=== PATIENT | female | born 1950 | race Caucasian/White ===

== ENCOUNTER 2016-10-12 10:43 | Day surgery (SDC) | payer BC, MEDICARE ==
[2016-10-11 10:54] VITALS: BMI 29.2
[~2016-10-12 10:43] MED LIST: LACTATED RINGERS 1,000 ML IV SCH; LIDOCAINE 1% 20 ML VIAL (10MG/ML) FOR IV START INTRADERMA PRN
[2016-10-12] MEDS: CYCLOPENTOLATE 1% OPHTH SOLN 2 ML BTL OP ONE ×3 (11:05→11:26)
[2016-10-12] MEDS: FLURBIPROFEN 0.03% OPHTH DROPS 2.5 ML BTL OP ONE ×3 (11:10→11:29)
[2016-10-12] MEDS: PHENYLEPHRINE 10% OPHTH DROPS 5 ML BTL OP ONE ×3 (11:13→11:31)
[2016-10-12 11:30] VITALS: RESP 16; TEMP 97.7
[2016-10-12] MEDS ORDERED: HYALURONATE SODIUM INTRAOCULAR 1 EACH SYRINGE (10MG/ML) INTRAOCULA ONE (11:43)
[2016-10-12] MEDS ORDERED: TIMOLOL 0.5% OPHTH SOLN (PF) 0.2 ML DROPERETTE LEFT EYE ONE (11:43)
[2016-10-12] MEDS ORDERED: BALANCED SALT IRRIG SOLN COMB2 15 ML IRRIG.SOLN INTRAOCULA ONE (11:43)
[2016-10-12] MEDS ORDERED: LIDOCAINE 1% INJ 10MG/ML (20 ML MDV) ONE (11:45)
[2016-10-12] MEDS ORDERED: PROPOFOL 10 MG/ML 20 ML VIAL IV ONE (11:45)
[2016-10-12] MEDS ORDERED: EPINEPHrine (PF) 0.5 ML in BALANCED SALT IRRIG SOLN COMB2 500 ML IRRIGATION ONE (11:49)
--- NOTE | 2016-10-12 12:05 | P.OP ---
Date of Procedure: 10/12/16 Preoperative Diagnosis: Postoperative Diagnosis: Procedure(s) Performed: PREOPERATIVE DIAGNOSIS: Cataract, left eye. POSTOPERATIVE DIAGNOSIS: Cataract, left eye. OPERATION: Phacoemulsification cataract, left eye. DESCRIPTION OF PROCEDURE: The patient was taken to the preoperative holding area. Intravenous Propofol was given so as to bring about adequate sedation. The following mixture was given for local anesthesia: 5 mL of 2% lidocaine, 5 mL of 0.75% Marcaine, and 1 mL of Wydase. Approximately 4 mL was injected in the retrobulbar space of the surgical eye. Additional 1 mL was then directed to the temporal area of the surgical eye. This was performed to allow adequate neurological block of the facial muscles. The patient was revived and then taken into the operative room. The patient was prepped and draped in the usual sterile manner for the operative eye. A lid speculum was put into position. The conjunctiva was resected back from the limbus in the 12 o'clock position. Bleeding was controlled with electrocautery. A #69 blade was then used and a half-thickness scleral incision approximately 1-mm posterior to the limbus was made on bare sclera. This was shelved in the clear cornea using a crescent knife. Next a 15-degree blade was used to make a stab incision at the 3 o' clock position at the corneolimbal interface. Keratome blade was then used and the superior wound was extended into the anterior chamber. Viscoelastic was injected into the anterior chamber and to maintain its form. Next, a cystotome was used and a continuous anterior capsulotomy was made without difficulty. Hydrodissection using a blunt cannula and BSS was performed. Phaco probe was then employed and a groove extending from 12 to 6 o'clock in the lens was created. A Jean Carlos wand was used through the stab incision so as to perform a divide and conquer technique. Next an irrigation aspiration probe was utilized and any residual cortex was removed from the eye. Again, viscoelastic was injected into the anterior chamber. An Jose posterior chamber lens implant was placed in the cartridge and injected into the anterior chamber without difficulty. The [employer] hook was utilized to spin the lens into position and this was again performed without any difficulty. The irrigation and aspiration probe was again employed and any residual viscoelastic was removed from the eye. Then BSS was injected into the limbal stab incision and the anterior chamber re-inflated. The conjunctiva was reapproximated using electrocautery. One drop of 0.25% Timoptic was placed over the corneal along with TobraDex ophthalmic ointment. Two sterile patches and a Ag eye shield were taped into position. The patient was transported to the recovery room in stable condition. Implants: Pathology: none sent Condition: stable Disposition: same day Indications for Procedure: Operative Findings: Description of Procedure:
[2016-10-12 12:25] VITALS: BP 144/74; PULSE 62
[2016-10-12] MEDS ORDERED: GENTAMICIN/PREDNISOL AC OPHTH OINT 3.5GM OPHTHALMIC ONE (23:00)
[2016-10-12] MEDS ORDERED: TIMOLOL 0.5% OPHTH SOLN (PF) 0.2 ML DROPERETTE OP ONE (23:00)
[2016-10-12] MEDS ORDERED: BUPIVACAINE (PF) 0.75% 5 ML, LIDOCAINE 4% (PF) 5 ML, HYALURONIDASE, HUMAN RECOMB 150 UNIT MISCELLANE ONE ×3 (23:00)
== END 2016-10-12 12:43 | disposition home or self-care (01) ==
LOC: OR 10:43
PROVIDERS: ATTEND Ophthalmology
DX: H26.9 Unspecified cataract (principal); F32.9 Major depressive disorder, single episode, unspecified; Z79.899 Other long term (current) drug therapy
CPT/HCPCS: 66984; V2632; J2001 ×2; J3470; J0171; J2704

== ENCOUNTER → 2018-01-24 | Outpatient (CLI) | payer MEDICARE ==
--- NOTE | 2018-01-24 14:47 | BD ---
EXAMINATION TYPE: Axial Bone Density DATE OF EXAM: 01/24/2018 COMPARISON: NONE CLINICAL HISTORY: 67 YR OLD FEMALE.....ICD-10 CODE: M89.9 DISORDER OF BONE Height: 62 Weight: 176 FRAX RISK QUESTIONS: History of Fracture in Adulthood: YES RISK FACTORS HISTORY OF: RT ELBOW FX AT 66 YRS OLD History of Wrist Fracture: RT WRIST...AT 56 YRS OLD Family History of Osteoporosis: MATERNAL AUNT Diet low in dairy products/other sources of calcium: NO Postmenopausal woman: YES AT 51 YRS OLD MEDICATIONS: Additional Medications: CYMBALTA, Additional History: NOTHING TO NOTE EXAM MEASUREMENTS: Bone mineral densitometry was performed using the [facility]. Bone mineral density as measured about the Lumbar spine is: ----- L1-L4(G/cm2): 1.491 T Score Values are as follows: ----- L1: 1.0 ----- L2: 2.3 ----- L3: 3.2 ----- L4: 3.2 ----- L1-L4: 2.6 Bone mineral density FIRST BONE DENSITY TEST.....BASELINE STUDY Bone mineral density about the R hip (g/cm2): 1.078 Bone mineral density about the L hip (g/cm2): 1.114 T Score values are as follows: -----R Neck: -0.4 -----L Neck: 0.1 -----R Total: 0.6 -----L Total: 0.8 Bone mineral density BASELINE STUDY FRAX%s: THERE IS A 11.5% CHANCE FOR A MAJOR OSTEOPOROTIC FX AND A 0.5% FOR HIP FX.....PROBABILITY OF FX IN 10 YRS TIME IMPRESSION: Normal (Values between +1 and -1 indicate normal bone mass). Consider repeating this study in 5 year s or sooner if there is some new clinical indication. NOTE: T-SCORE=SD OF THE YOUNG ADULT MEAN.
--- NOTE | 2018-01-25 08:53 | MM ---
Reason for exam: screening (asymptomatic). Last mammogram was performed 2 years ago. History: Patient is postmenopausal. Family history of breast cancer in mother at age 44. Benign excisional biopsy of the left breast, 2007. Physical Findings: A clinical breast exam by your physician is recommended on an annual basis and results should be correlated with mammographic findings. MG Screening Mammo w CAD Bilateral CC and MLO view(s) were taken. Prior study comparison: January 27, 2016, mammogram, performed at [facility]. There are scattered fibroglandular densities. There is no discrete abnormality. No significant changes when compared with prior studies. ASSESSMENT: Negative, BI-RAD 1 RECOMMENDATION: Routine screening mammogram of both breasts in 1 year.
== END | disposition home or self-care (01) ==
LOC: RADMAMWWP 09:34
PROVIDERS: ATTEND Internal Medicine
DX: Z12.31 Encounter for screening mammogram for malignant neoplasm of breast (principal); M89.9 Disorder of bone, unspecified
CPT/HCPCS: 77067; 77080

== ENCOUNTER 2018-10-02 11:44 | Emergency (ER) | payer MEDICARE ==
[2018-10-02 11:57] VITALS: TEMP 97.4
[2018-10-02] MEDS ORDERED: SODIUM CHLORIDE 0.9% 1,000 ML IV STA ×2 (13:07)
--- NOTE | 2018-10-02 13:25 | ED ---
General Adult HPI - General Chief complaint: Neuro Symptoms/Deficit Stated complaint: headache x 7 days, facial numbness, visual disturb Time Seen by Provider: 10/02/18 12:36 Source: patient, family, RN notes reviewed, old records reviewed, Caregiver Mode of arrival: ambulatory Limitations: no limitations - History of Present Illness Initial comments: Patient is a 68-year-old female presents today with complaints of right-sided headache, complains of the headache lasting for one week. She states today she developed some left-sided tingling over her upper lip. She denies any facial paralysis. Denies any peripheral paresthesias. He denies any significant past medical history. She is a non smoker. She does not have a history of heart disease or stroke. - Related Data Home Medications Medication Instructions Recorded Confirmed Acetaminophen Tab [Tylenol Tab] 1,000 mg PO Q6HR PRN 10/02/18 10/02/18 DULoxetine HCL [Cymbalta] 30 mg PO HS 10/02/18 10/02/18 Ibuprofen [Motrin Ib] 400 mg PO Q6H PRN 10/02/18 10/02/18 Pramipexole [Mirapex] 0.5 mg PO HS 10/02/18 10/02/18 traZODone HCL [Desyrel] 50 mg PO HS 10/02/18 10/02/18 Allergies Allergy/AdvReac Type Severity Reaction Status Date / Time No Known Allergies Allergy Verified 10/02/18 12:42 Review of Systems ROS Statement: Those systems with pertinent positive or pertinent negative responses have been documented in the HPI. ROS Other: All systems not noted in ROS Statement are negative. Past Medical History Past Medical History: Eye Disorder Additional Past Medical History / Comment(s): LEFT EYE CATARACT, restless leg History of Any Multi-Drug Resistant Organisms: None Reported Past Surgical History: Section, Cholecystectomy Additional Past Surgical History / Comment(s): RT EYE CATARACT SX Past Anesthesia/Blood Transfusion Reactions: No Reported Reaction Past Psychological History: Depression Smoking Status: Former smoker Past Alcohol Use History: Occasional Past Drug Use History: None Reported - Past Family History Mother Family Medical History: Cancer General Exam - General Exam Comments Initial Comments: Well appearing 68 year old female, no distress. Limitations: no limitations General appearance: alert, in no apparent distress Head exam: Present: atraumatic, normocephalic, normal inspection Eye exam: Present: normal appearance, PERRL, EOMI. Absent: scleral icterus, conjunctival injection, periorbital swelling ENT exam: Present: normal exam, mucous membranes moist, other (Patient states left upper lip tingling, but normal sensation to light touch. Patient has no facial paralysis. ) Neck exam: Present: normal inspection. Absent: tenderness, meningismus, lymphadenopathy Respiratory exam: Present: normal lung sounds bilaterally. Absent: respiratory distress, wheezes, rales, rhonchi, stridor Cardiovascular Exam: Present: regular rate, normal rhythm, normal heart sounds. Absent: systolic murmur, diastolic murmur, rubs, gallop, clicks GI/Abdominal exam: Present: soft, normal bowel sounds. Absent: distended, tenderness, guarding, rebound, rigid Extremities exam: Present: normal inspection, full ROM, normal capillary refill. Absent: tenderness, pedal edema, joint swelling, calf tenderness Back exam: Present: normal inspection Neurological exam: Present: alert, oriented X3, CN II-XII intact Psychiatric exam: Present: normal affect, normal mood Course Vital Signs 10/02/18 10/02/18 10/02/18 11:54 13:30 14:00 Temperature 97.4 F L Pulse Rate 69 65 65 Respiratory 16 21 20 Rate Blood Pressure 150/74 165/78 159/74 O2 Sat by Pulse 97 96 98 Oximetry 10/02/18 10/02/18 14:30 15:30 Temperature Pulse Rate 62 70 Respiratory 16 19 Rate Blood Pressure 142/99 146/72 O2 Sat by Pulse 97 98 Oximetry Medical Decision Making - Medical Decision Making Patient is a 68 year old female presents with one week right sided headache, and today complains of tingling in left upper lip. She hasNIH of 0, she reports sensation of light touch over face. No paralysis or other neurodeficits. Patient CT shows chronic white matter changes. Normal CXR, ekg and labs. She was reevaluated and stated headache is diminished and has normal sensation over lip again. Discussed possible transfer to neuro facility, however patient stated she felt well and wanted to follow up with PCP. Discussed return parameters. - Lab Data Result diagrams: 10/02/18 13:25 10/02/18 13:25 Lab Results 10/02/18 10/02/18 10/02/18 Range/Units 13:25 13:25 13:25 WBC 8.2 (3.8-10.6) k/uL RBC 4.77 (3.80-5.40) m/uL Hgb 14.7 (11.4-16.0) gm/dL Hct 44.3 (34.0-46.0) % MCV 92.9 (80.0-100.0) fL MCH 30.8 (25.0-35.0) pg MCHC 33.2 (31.0-37.0) g/dL RDW 14.4 (11.5-15.5) % Plt Count 226 (150-450) k/uL Neutrophils % 69 % Lymphocytes % 21 % Monocytes % 5 % Eosinophils % 3 % Basophils % 0 % Neutrophils # 5.7 (1.3-7.7) k/uL Lymphocytes # 1.7 (1.0-4.8) k/uL Monocytes # 0.4 (0-1.0) k/uL Eosinophils # 0.2 (0-0.7) k/uL Basophils # 0.0 (0-0.2) k/uL PT 9.8 (9.0-12.0) sec INR 0.9 (<1.2) APTT 22.8 (22.0-30.0) sec Sodium 139 (137-145) mmol/L Potassium 4.2 (3.5-5.1) mmol/L Chloride 108 H (98-107) mmol/L Carbon Dioxide 25 (22-30) mmol/L Anion Gap 6 mmol/L BUN 22 H (7-17) mg/dL Creatinine 0.98 (0.52-1.04) mg/dL Est GFR (CKD-EPI)AfAm 69 (>60 ml/min/1.73 sqM) Est GFR (CKD-EPI)NonAf 60 (>60 ml/min/1.73 sqM) Glucose 101 H (74-99) mg/dL Calcium 9.4 (8.4-10.2) mg/dL Total Bilirubin 0.4 (0.2-1.3) mg/dL AST 28 (14-36) U/L ALT 33 (9-52) U/L Alkaline Phosphatase 58 (38-126) U/L Troponin I (0.000-0.034) ng/mL Total Protein 6.5 (6.3-8.2) g/dL Albumin 3.8 (3.5-5.0) g/dL 10/02/18 Range/Units 13:25 WBC (3.8-10.6) k/uL RBC (3.80-5.40) m/uL Hgb (11.4-16.0) gm/dL Hct (34.0-46.0) % MCV (80.0-100.0) fL MCH (25.0-35.0) pg MCHC (31.0-37.0) g/dL RDW (11.5-15.5) % Plt Count (150-450) k/uL Neutrophils % % Lymphocytes % % Monocytes % % Eosinophils % % Basophils % % Neutrophils # (1.3-7.7) k/uL Lymphocytes # (1.0-4.8) k/uL Monocytes # (0-1.0) k/uL Eosinophils # (0-0.7) k/uL Basophils # (0-0.2) k/uL PT (9.0-12.0) sec INR (<1.2) APTT (22.0-30.0) sec Sodium (137-145) mmol/L Potassium (3.5-5.1) mmol/L Chloride (98-107) mmol/L Carbon Dioxide (22-30) mmol/L Anion Gap mmol/L BUN (7-17) mg/dL Creatinine (0.52-1.04) mg/dL Est GFR (CKD-EPI)AfAm (>60 ml/min/1.73 sqM) Est GFR (CKD-EPI)NonAf (>60 ml/min/1.73 sqM) Glucose (74-99) mg/dL Calcium (8.4-10.2) mg/dL Total Bilirubin (0.2-1.3) mg/dL AST (14-36) U/L ALT (9-52) U/L Alkaline Phosphatase (38-126) U/L Troponin I <0.012 (0.000-0.034) ng/mL Total Protein (6.3-8.2) g/dL Albumin (3.5-5.0) g/dL 10/02/18 14:03 EKG performed at 1329 shows a sinus rhythm abnormal EKG. Ventricular rate of 66 bpm. VT interval is 166 ms. QRS duration 86 ms. QTC is 420/440 ms. No distress elevation or T-wave inversions. - Radiology Data Radiology results: report reviewed Non specific white matter changes. If there is concern for acute ischemia correlate with mri. Normal CXR. Disposition Clinical Impression: Headache around the eyes, Facial paresthesia Disposition: HOME SELF-CARE Condition: Good Instructions (If sedation given, give patient instructions): Kinsey Palsy (ED), Acute Headache (ED) Additional Instructions: Patient is to follow-up with her primary care physician. Return to the emergency department if any alarming signs or symptoms occur. Is patient prescribed a controlled substance at d/c from ED?: No Referrals: Arnaldo Fraser MD [Primary Care Provider] - 1-2 days Time of Disposition: 15:41
[2018-10-02 13:44] LABS: Basophils % (A) 0 %; Eosinophils # (A) 0.2 k/uL (0-0.7); Eosinophils % (A) 3 %; HCT 44.3 % (34.0-46.0); HGB 14.7 gm/dL (11.4-16.0); Lymphocytes # (A) 1.7 k/uL (1.0-4.8); Lymphocytes % (A) 21 %; MCH 30.8 pg (25.0-35.0); MCHC 33.2 g/dL (31.0-37.0); MCV 92.9 fL (80.0-100.0); Monocytes # (A) 0.4 k/uL (0-1.0); Monocytes % (A) 5 %; Neutrophils # (A) 5.7 k/uL (1.3-7.7); Neutrophils % (A) 69 %; Platelet Count 226 k/uL (150-450); RBC 4.77 m/uL (3.80-5.40); RDW 14.4 % (11.5-15.5); WBC 8.2 k/uL (3.8-10.6)
[2018-10-02 13:55] LABS: Albumin 3.8 g/dL (3.5-5.0); Calcium 9.4 mg/dL (8.4-10.2); INR 0.9 (<1.2); Partial Thromboplastin Time 22.8 sec (22.0-30.0); Potassium 4.2 mmol/L (3.5-5.1); Prothrombin Time 9.8 sec (9.0-12.0); Total Bilirubin 0.4 mg/dL (0.2-1.3); Total Protein 6.5 g/dL (6.3-8.2)
--- NOTE | 2018-10-02 13:56 | CT ---
EXAMINATION TYPE: CT brain wo con DATE OF EXAM: 10/02/2018 COMPARISON: None HISTORY: Headache and facial tingling CT DLP: 1080.4 mGycm Automated exposure control for dose reduction was used. FINDINGS: Ventricular system midline. There is a small calcification along the anterior interhemispheric fissur e. No acute hemorrhage or mass effect. Ventricular system compatible with the patient's age. Faint lo w-attenuation the white matter is nonspecific. Partially empty sella turcica noted. Craniocervical ju nction maintained. Low-attenuation within the left basal ganglia may be secondary to prominent Vircho w-Christiano space or tiny remote lacunar infarct. IMPRESSION: NONSPECIFIC WHITE MATTER CHANGES. IF THERE IS CONCERN FOR ACUTE ISCHEMIA CORRELATE WITH MRI CLINIC ALLY WARRANTED.
--- NOTE | 2018-10-02 13:57 | XR ---
EXAMINATION TYPE: XR chest 2V DATE OF EXAM: 10/02/2018 COMPARISON: 04/16/2014 TECHNIQUE: PA and lateral views submitted. HISTORY: Headache FINDINGS: The lungs are clear and there is no pneumothorax, pleural effusion, or focal pneumonia. Hypertrophi c and degenerative change of the spine. Surgical clips in the right upper quadrant. Arthropathy of th e shoulders. IMPRESSION: 1. No acute process.
[2018-10-02 15:32] VITALS: BP 146/72; PULSE 70; RESP 19
== END 2018-10-02 15:45 | disposition home or self-care (01) ==
LOC: EC 11:44
DX: R51 Headache (principal); R20.2 Paresthesia of skin; R20.0 Anesthesia of skin; H53.8 Other visual disturbances; G25.81 Restless legs syndrome; F32.9 Major depressive disorder, single episode, unspecified; Z86.69 Personal history of other diseases of the nervous system and sense organs; Z98.49 Cataract extraction status, unspecified eye; Z87.891 Personal history of nicotine dependence; Z79.899 Other long term (current) drug therapy
CPT/HCPCS: 36415; 70450; 71046; 80053; 84484; 85025; 85610; 85730; 93005; 96360; 96361; 99285

== ENCOUNTER → 2018-10-18 | Outpatient (CLI) | payer MEDICARE ==
--- NOTE | 2018-10-18 15:51 | US ---
EXAMINATION TYPE: US carotid duplex BILAT DATE OF EXAM: 10/18/2018 COMPARISON: NONE CLINICAL HISTORY: G45.9 Transient cerebral ischemic attack. EXAM MEASUREMENTS: RIGHT: Peak Systolic Velocity (PSV) cm/sec ----- Right CCA: 104.4 ----- Right ICA: 123.8 ----- Right ECA: 143.1 ICA/CCA ratio: 1.2 RIGHT: End Diastole cm/sec ----- Right CCA: 25.2 ----- Right ICA: 36.5 ----- Right ECA: 22.9 LEFT: Peak Systolic Velocity (PSV) cm/sec ----- Left CCA: 123.4 ----- Left ICA: 117.5 ----- Left ECA: 107.7 ICA/CCA ratio: 1.0 LEFT: End Diastole cm/sec ----- Left CCA: 34.7 ----- Left ICA: 46.5 ----- Left ECA: 17.0 VERTEBRALS (direction of flow): Right Vertebral: Antegrade Left Vertebral: Antegrade Rhythm: Normal Moderate amount of plaque in the right bulbs. Elevated velocities seen in right ECA and left proximal and mid CCA IMPRESSION: 1. Moderate amount of plaque with no significant hemodynamic stenosis bilaterally. Criteria for Assigning % of Stenosis / Diameter reduction (Estimation based on the indirect measurements of the internal carotid artery velocities (ICA PSV). 1. Normal (no stenosis)=ICA PSV < 125 cm/s: ratio < 2.0: ICA EDV<40 cm/s. 2. Less than 50% stenosis=ICA PSV < 125 cm/s: ratio < 2.0: ICA EDV<40 cm/s. 3. 50 to 69% stenosis=ICA PSV of 125 to 230 cm/s: ration 2.0 ? 4.0: ICA EDV 40-100 cm/s. 4. Greater than 70% stenosis to near occlusion= ICA PSV > 230 cm/s: ratio > 4.0: ICA EDV > 100 cm/s. 5. Near occlusion= ICA PSV velocities may be low or undetectable: variable ratio and ICA EDV. 6. Total occlusion=unable to detect flow.
== END | disposition home or self-care (01) ==
LOC: RADUSWWP 15:11
PROVIDERS: ATTEND Internal Medicine
DX: I65.23 Occlusion and stenosis of bilateral carotid arteries (principal); G45.9 Transient cerebral ischemic attack, unspecified
CPT/HCPCS: 93880

== ENCOUNTER 2020-02-15 16:48 | Emergency (ER) | payer MEDICARE ==
[2020-02-15 16:57] VITALS: RESP 18; TEMP 97.6
[2020-02-15] MEDS ORDERED: MORPHINE SULFATE 2 MG/ML SYRINGE IM STA (17:12)
[2020-02-15] MEDS ORDERED: MORPHINE SULFATE 4 MG/ML SYRINGE IM STA (17:24)
--- NOTE | 2020-02-15 18:09 | CT ---
EXAMINATION TYPE: CT pelvis wo con DATE OF EXAM: 02/15/2020 COMPARISON: 04/17/2014 HISTORY: Pain. Fall. CT DLP: 474.3 mGycm Automated exposure control for dose reduction was used. Images were obtained from the iliac crests to the subtrochanteric femurs without contrast. FINDINGS: The pelvic ring is intact. Sacroiliac joints appear intact. Sacrum and coccyx show normal alignment o f the segments. There is narrowing of L5-S1 disc space with spurring of the endplates. There is no co mpression fracture at L5. There is some acetabular spurring. The proximal femurs are intact. I see no evidence of femoral fracture. There is some spurring at the greater trochanter of both femurs. Bladder distends smoothly. There is no free fluid in the pelvis. There is no evidence of a pelvic mas s. There is sigmoid diverticulosis without evidence of diverticulitis. IMPRESSION: Minor degenerative changes in the hip joints and in the lower lumbar spine. No fracture seen.
--- NOTE | 2020-02-15 18:12 | CT ---
EXAMINATION TYPE: CT lumbar spine wo con DATE OF EXAM: 02/15/2020 COMPARISON: 04/17/2014 HISTORY: Left sided hip and back pain post fall CT DLP: 1147.4 mGycm Automated exposure control for dose reduction was used. Images were obtained from the level of T12-S2 vertebra with no contrast. Lumbar vertebra have normal alignment. There is mild narrowing at L5-S1 disc. There is hypertrophic a nterior spurring throughout the lumbar spine. There is no compression deformity. There is multilevel hypertrophic lumbar facet arthropathy. This is more severe at L4-5 and L5-S1. There is no lumbar para spinal mass. There is ligamentum flavum thickening and small disc bulge at L4-5 there is resultant mi ld to moderate L4-5 spinal stenosis. Sacroiliac joints are intact. IMPRESSION: Multilevel spondylotic changes with spur formation. Mild spinal stenosis at L4-5. No fracture seen.
[2020-02-15 18:38] VITALS: PULSE 67
[2020-02-15] MEDS ORDERED: KETOROLAC 15 MG/ML 1 ML VIAL IM STA (18:54)
--- NOTE | 2020-02-15 19:37 | XR ---
EXAMINATION TYPE: XR ribs LT w pa chest xray DATE OF EXAM: 02/15/2020 COMPARISON: 04/16/2014 HISTORY: Fall. Chest pain. TECHNIQUE: 5 views FINDINGS: There is no heart failure nor confluent pneumonic infiltrate. Costophrenic angles are clear . There is no pleural effusion or pneumothorax. The left ribs appear intact. There are clips from teja cystectomy. IMPRESSION: No evidence of rib fracture. No active cardiopulmonary disease. No change.
[2020-02-15] MEDS ORDERED: ACET/COD 300 MG/30 MG STARTER PACK 6 TAB BTL PO STA (20:09)
[2020-02-15] MEDS ORDERED: LIDOCAINE 5% PATCH TOPICAL STA (20:09)
--- NOTE | 2020-02-15 20:14 | ED ---
Fall HPI - General Chief Complaint: Fall Stated Complaint: fall Time Seen by Provider: 02/15/20 16:53 Source: patient, EMS Mode of arrival: EMS - History of Present Illness Initial Comments: Patient is a 69-year-old female with no past medical history presents emergency Department after she sustained a fall. Patient states that she was walking down the stairs with her hands full when she slipped down the last step and fell onto her left flank area. Patient states she sat there for approximately 30 minutes and couldn't move. She denies any pain that was radiating into her leg. Denies any midline back pain. No head trauma or loss of consciousness. She does admit to sipping alcohol today and smoked marijuana. She was unable to stand up and therefore EMS was called. She did not receive any pain medications. Denies nausea or vomiting. No neck or thoracic back pain. No numbness, taming or weakness in her lower extremity. No bowel or bladder incontinence. No saddle anesthesia. No other alleviating, precipitating or modifying factors - Related Data Home Medications Medication Instructions Recorded Confirmed DULoxetine HCL [Cymbalta] 30 mg PO HS 10/02/18 02/15/20 traZODone HCL [Desyrel] 50 mg PO HS 10/02/18 02/15/20 Pramipexole [Mirapex] 1 mg PO HS 02/15/20 02/15/20 amLODIPine [Norvasc] 2.5 mg PO HS 02/15/20 02/15/20 Previous Rx's Medication Instructions Recorded Acetaminophen-Codeine 300-30mg 1 tab PO Q4H PRN #20 tablet 02/15/20 [Tylenol #3] Lidocaine 5% Patch [Lidoderm 5% 1 patch TOPICAL DAILY #20 patch 02/15/20 Patch] Allergies Allergy/AdvReac Type Severity Reaction Status Date / Time No Known Allergies Allergy Verified 02/15/20 18:58 Review of Systems ROS Statement: Those systems with pertinent positive or pertinent negative responses have been documented in the HPI. ROS Other: All systems not noted in ROS Statement are negative. Past Medical History Past Medical History: Eye Disorder Additional Past Medical History / Comment(s): LEFT EYE CATARACT, restless leg History of Any Multi-Drug Resistant Organisms: None Reported Past Surgical History: Section, Cholecystectomy Additional Past Surgical History / Comment(s): LEFT and RT EYE CATARACT SX Past Anesthesia/Blood Transfusion Reactions: No Reported Reaction Past Psychological History: Depression Smoking Status: Never smoker Past Alcohol Use History: Occasional Past Drug Use History: Marijuana - Past Family History Mother Family Medical History: Cancer General Exam Limitations: physical limitation General appearance: alert, in no apparent distress Head exam: Present: atraumatic, normocephalic, normal inspection Eye exam: Present: normal appearance, PERRL, EOMI. Absent: scleral icterus, conjunctival injection, periorbital swelling ENT exam: Present: normal exam, mucous membranes moist Neck exam: Present: normal inspection. Absent: tenderness, meningismus, lymphadenopathy Respiratory exam: Present: normal lung sounds bilaterally. Absent: respiratory distress, wheezes, rales, rhonchi, stridor Cardiovascular Exam: Present: regular rate, normal rhythm, normal heart sounds. Absent: systolic murmur, diastolic murmur, rubs, gallop, clicks GI/Abdominal exam: Present: soft, normal bowel sounds. Absent: distended, tenderness, guarding, rebound, rigid Extremities exam: Present: normal inspection, full ROM, normal capillary refill. Absent: tenderness, pedal edema, joint swelling, calf tenderness Back exam: Present: normal inspection, CVA tenderness (L) Neurological exam: Present: alert, oriented X3, CN II-XII intact Psychiatric exam: Present: normal affect, normal mood Skin exam: Present: warm, dry, intact, other (ecchymosis over left flank ). Absent: rash Course Vital Signs 02/15/20 02/15/20 02/15/20 16:53 18:35 20:16 Temperature 97.6 F 97.6 F Pulse Rate 57 L 67 67 Respiratory 18 18 18 Rate Blood Pressure 165/100 188/93 171/82 O2 Sat by Pulse 98 97 97 Oximetry Medical Decision Making - Medical Decision Making Upon arrival patient was placed into room 12. A thorough history and physical exam was performed. Patient is reporting to pain in her left iliac crest. She is given 4 mg of morphine and sent over for CT of her lumbar spine as well as her pelvis. Imaging is reviewed and negative for any acute fractures. Patient is reevaluated. Reports her pain is now complaining of the pain is higher up on her back and is over her lower ribs. Because of this the patient was sent back for a chest x-ray with a left-sided rib study. Patient is given 30 mg of Toradol IM. X-rays reviewed and demonstrates no evidence of rib fracture. The patient is able to get up and ambulate. I did discuss diagnosis, differential and treatment options. Patient does have a bedside ultrasound performed by myself which demonstrates no blood in the spleenorenal fossa. At this time the patient does request to go home. She will be given a prescription for Tylenol 3 for pain control and Lidoderm patches. Lidoderm patch was administered prior to her leaving. The patient developed a primary care doctor within 2-4 days. Return to the emergency room for any new or worsening symptoms. Patient was and discharged home in stable condition Disposition Clinical Impression: Fall, Rib contusion, Flank pain Disposition: HOME SELF-CARE Condition: Stable Instructions (If sedation given, give patient instructions): Flank Pain (ED) Additional Instructions: Please follow up with your primary care doctor in regards to your pain. Return to the emergency room for any new or worsening symptoms including fever, productive cough or abdominal pain. Prescriptions: Lidocaine 5% Patch [Lidoderm 5% Patch] 1 patch TOPICAL DAILY #20 patch Acetaminophen-Codeine 300-30mg [Tylenol #3] 1 tab PO Q4H PRN #20 tablet PRN Reason: pain Is patient prescribed a controlled substance at d/c from ED?: Yes When asked, does pt state using other controlled substances?: No If prescribed controlled substance>3 days was MAPS reviewed?: Prescribed <3 Days If opioid is for acute pain is fill amount 7 days or less?: Yes If Rx opioid, was Start Talking consent form obtained?: Yes Referrals: Maria Dolores Mcmahon NPC [Primary Care Provider] - 1-2 days Time of Disposition: 20:14
[2020-02-15 20:17] VITALS: BP 171/82
== END 2020-02-15 20:19 | disposition home or self-care (01) ==
LOC: EC 16:48
DX: S20.219A Contusion of unspecified front wall of thorax, initial encounter (principal); R10.9 Unspecified abdominal pain; F32.9 Major depressive disorder, single episode, unspecified; G25.81 Restless legs syndrome; Z79.899 Other long term (current) drug therapy; Z90.49 Acquired absence of other specified parts of digestive tract; W01.0XXA Fall on same level from slipping, tripping and stumbling without subsequent striking against object, initial encounter; Y93.01 Activity, walking, marching and hiking
CPT/HCPCS: 82075; 71101; 72192; 72131; 96372 ×2; 99284; J2270; J1885

== ENCOUNTER → 2021-04-03 | Outpatient (CLI) | payer MEDICARE ==
--- NOTE | 2021-04-04 06:06 | MR ---
EXAMINATION TYPE: MR knee LT wo con DATE OF EXAM: 04/03/2021 COMPARISON: None HISTORY: Left knee pain, injured stepping off a ladder. Multiplanar multiecho imaging of the right knee without contrast. There is a large knee joint effusion. The anterior and posterior cruciate ligaments are intact. There is thinning of the anterior horn of the lateral meniscus. The medial meniscus appears fairly normal. The patella is intact. There is subcutaneous edema anterior to the knee. There is hypertrophic spurr ing of the femoral and tibial condyles. The collateral ligaments appear intact. There is no evidence of a fracture. IMPRESSION: Large knee joint effusion. Hypertrophic osteoarthritis. Extensive tear of the anterior horn of the la teral meniscus. There is intrasubstance tear of the posterior horn of the lateral meniscus. No eviden ce of ligamentous tear.
== END | disposition home or self-care (01) ==
LOC: RADMRIMAIN 15:30
PROVIDERS: ATTEND Physician Assistant
DX: S83.282A Other tear of lateral meniscus, current injury, left knee, initial encounter (principal); M17.12 Unilateral primary osteoarthritis, left knee; W11.XXXA Fall on and from ladder, initial encounter

== ENCOUNTER 2021-09-05 11:05 | Emergency (ER) | payer MEDICARE ==
[2021-09-05 11:56] LABS: ALT 20 U/L (4-34); AST 25 U/L (14-36); African American GFR (CKD) >90 (>60 ml/min/1.73 sqM); Albumin 3.7 g/dL (3.5-5.0); Alkaline Phosphatase 60 U/L (38-126); Anion Gap 2 mmol/L; Blood Urea Nitrogen 24 mg/dL (7-17); Calcium 8.4 mg/dL (8.4-10.2); Carbon Dioxide 28 mmol/L (22-30); Chloride 106 mmol/L (98-107); Glucose 105 mg/dL (74-99); Magnesium 2.1 mg/dL (1.6-2.3); Non-African American GFR(CKD) >90 (>60 ml/min/1.73 sqM); Sodium 136 mmol/L (137-145); Total Bilirubin 0.4 mg/dL (0.2-1.3); Total Protein 6.5 g/dL (6.3-8.2)
--- NOTE | 2021-09-05 11:56 | XR ---
EXAMINATION TYPE: XR chest 2V DATE OF EXAM: 09/05/2021 COMPARISON: 10/02/2018 HISTORY: Chest pain TECHNIQUE: Frontal and lateral views of the chest are obtained. FINDINGS: There is no focal air space opacity, pleural effusion, or pneumothorax seen. The cardiac silhouette size is within normal limits. The osseous structures are intact. IMPRESSION: No acute cardiopulmonary process.
[2021-09-05 12:00] LABS: Basophils % (A) 0 %; Eosinophils # (A) 0.2 k/uL (0-0.7); Eosinophils % (A) 2 %; HCT 45.9 % (34.0-46.0); HGB 14.7 gm/dL (11.4-16.0); Lymphocytes # (A) 1.6 k/uL (1.0-4.8); Lymphocytes % (A) 21 %; MCH 30.8 pg (25.0-35.0); MCV 96.3 fL (80.0-100.0); Mean Platelet Volume 7.6; Monocytes # (A) 0.4 k/uL (0-1.0); Monocytes % (A) 5 %; Neutrophils # (A) 5.3 k/uL (1.3-7.7); Neutrophils % (A) 70 %; Platelet Count 213 k/uL (150-450); RBC 4.77 m/uL (3.80-5.40); RDW 12.6 % (11.5-15.5); WBC 7.6 k/uL (3.8-10.6)
[2021-09-05 12:04] LABS: INR 0.9 (<1.2); Partial Thromboplastin Time 23.6 sec (22.0-30.0); Prothrombin Time 10.4 sec (9.0-12.0)
--- NOTE | 2021-09-05 15:03 | ED ---
General Adult HPI - General Chief complaint: Chest Pain Stated complaint: Chest Pain Time Seen by Provider: 09/05/21 11:10 Source: patient, EMS, RN notes reviewed, old records reviewed Mode of arrival: EMS Limitations: no limitations - History of Present Illness Initial comments: Patient is a 71-year-old female with no significant past medical history who presents emergency department over concern for some onset of chest pain. States it occurred approximately 1 hour prior to arrival. Lasted for approximately 5 minutes. Self resolved. She was driving a car, not exerting herself when she suddenly experienced right-sided chest pain. She states she has experienced this pain multiple times over the last 6 weeks or so. Lasted longer than normal. Presented to the emergency department for further evaluation. 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 Currently is asymptomatic. EMS provided her with 4 tablets of aspirin. Denies any shortness breath, history of blood clots, cough, fevers, chills. Denies any nausea, vomiting, abdominal pain. - Related Data Home Medications Medication Instructions Recorded Confirmed DULoxetine HCL [Cymbalta] 30 mg PO HS 10/02/18 09/05/21 traZODone HCL [Desyrel] 50 mg PO HS PRN 10/02/18 09/05/21 Pramipexole [Mirapex] 1 mg PO HS 02/15/20 09/05/21 Meloxicam 15 mg PO DAILY 09/05/21 09/05/21 Allergies Allergy/AdvReac Type Severity Reaction Status Date / Time No Known Allergies Allergy Verified 09/05/21 12:45 Review of Systems ROS Statement: Those systems with pertinent positive or pertinent negative responses have been documented in the HPI. Review of Systems: CONST: Denies fever EYES: Denies blurry vision ENT: Denies nasal congestion C/V: Endorses resolved chest pain RESP: Denies shortness of breath GI: Denies abdominal pain : Denies dysuria SKIN: Denies rash. MSK: Denies joint pain. NEURO: Denies headache ROS Other: All systems not noted in ROS Statement are negative. Past Medical History Past Medical History: Eye Disorder Additional Past Medical History / Comment(s): LEFT EYE CATARACT, restless leg History of Any Multi-Drug Resistant Organisms: None Reported Past Surgical History: Section, Cholecystectomy Additional Past Surgical History / Comment(s): LEFT and RT EYE CATARACT SX Past Anesthesia/Blood Transfusion Reactions: No Reported Reaction Past Psychological History: Depression Smoking Status: Never smoker Past Alcohol Use History: Occasional Past Drug Use History: Marijuana - Past Family History Mother Family Medical History: Cancer General Exam - General Exam Comments Initial Comments: General: Appears in no acute distress. HEAD: Normal with no signs of head trauma. EYES: PERRLA, EOMI, conjunctiva normal, no discharge. ENT: Hearing grossly intact, normal oropharynx. RESPIRATORY: Clear breath sounds bilaterally. No wheezes, rales, or rhonchi. C/V: Regular rate and rhythm. S1 and S2 auscultated, no edema, peripheral pulses 2+ and intact throughout ABD: Abd is soft, nontender, nondistended EXT: Normal range of motion, no obvious deformity SKIN: No rashes or lesions observed on exposed skin. NEURO: Alert and oriented 4. Limitations: no limitations Course Vital Signs 09/05/21 11:17 Temperature 98.6 F Pulse Rate 60 Respiratory 16 Rate Blood Pressure 173/80 O2 Sat by Pulse 98 Oximetry Medical Decision Making - Medical Decision Making Based on the patient's presentation and physical exam, I'm concerned for possible cardiopulmonary etiology for his symptoms. She is experiencing atypical chest pain, rule out possibility of pulmonary embolus. D-dimer and cardiac labs will be obtained. She'll received aspirin. EKG and chest x-ray will be obtained. We'll monitor for return of symptoms which is currently asymptomatic. EKG shows no signs of acute ischemia. X-ray studies were remarkable for an undetected troponin. D-dimer is within normal limits. Chest x-ray shows no signs of acute cardio pulmonary process. Patient's heart score is low at 3, but initial troponin is within 3 hours of symptom onset. I did discuss with her that she should obtain a second troponin. She waited not like to be admitted. She is very adamant about this. Therefore we will obtain a repeat troponin 3 hours after the initial. We'll mon itor for return of any chest pain. She was in agreement this plan. Repeat troponin was also undetected. I discussed the findings with the patient. Recommended she see cardiology on an outpatient basis. She was in agreement this plan. I instructed the patient to follow up with their PCP in the next 3 days. I explained that the patient should return to the emergency department if they experience any worsening symptoms. Strict return precautions were discussed with the patient. The patient expressed understanding of these instructions. I answered all questions that the patient had. The patient was discharged home in good condition with their prescriptions and follow up information. - Lab Data Result diagrams: 09/05/21 11:33 09/05/21 11:33 Lab Results 09/05/21 09/05/21 09/05/21 Range/Units 11:33 11:33 11:33 WBC 7.6 (3.8-10.6) k/uL RBC 4.77 (3.80-5.40) m/uL Hgb 14.7 (11.4-16.0) gm/dL Hct 45.9 (34.0-46.0) % MCV 96.3 (80.0-100.0) fL MCH 30.8 (25.0-35.0) pg MCHC 32.0 (31.0-37.0) g/dL RDW 12.6 (11.5-15.5) % Plt Count 213 (150-450) k/uL MPV 7.6 Neutrophils % 70 % Lymphocytes % 21 % Monocytes % 5 % Eosinophils % 2 % Basophils % 0 % Neutrophils # 5.3 (1.3-7.7) k/uL Lymphocytes # 1.6 (1.0-4.8) k/uL Monocytes # 0.4 (0-1.0) k/uL Eosinophils # 0.2 (0-0.7) k/uL Basophils # 0.0 (0-0.2) k/uL PT 10.4 (9.0-12.0) sec INR 0.9 (<1.2) APTT 23.6 (22.0-30.0) sec D-Dimer 0.58 (<0.60) mg/L FEU Sodium 136 L (137-145) mmol/L Potassium 4.0 (3.5-5.1) mmol/L Chloride 106 (98-107) mmol/L Carbon Dioxide 28 (22-30) mmol/L Anion Gap 2 mmol/L BUN 24 H (7-17) mg/dL Creatinine 0.65 (0.52-1.04) mg/dL Est GFR (CKD-EPI)AfAm >90 (>60 ml/min/1.73 sqM) Est GFR (CKD-EPI)NonAf >90 (>60 ml/min/1.73 sqM) Glucose 105 H (74-99) mg/dL Calcium 8.4 (8.4-10.2) mg/dL Magnesium 2.1 (1.6-2.3) mg/dL Total Bilirubin 0.4 (0.2-1.3) mg/dL AST 25 (14-36) U/L ALT 20 (4-34) U/L Alkaline Phosphatase 60 (38-126) U/L Troponin I (0.000-0.034) ng/mL Total Protein 6.5 (6.3-8.2) g/dL Albumin 3.7 (3.5-5.0) g/dL 09/05/21 09/05/21 Range/Units 11:33 14:15 WBC (3.8-10.6) k/uL RBC (3.80-5.40) m/uL Hgb (11.4-16.0) gm/dL Hct (34.0-46.0) % MCV (80.0-100.0) fL MCH (25.0-35.0) pg MCHC (31.0-37.0) g/dL RDW (11.5-15.5) % Plt Count (150-450) k/uL MPV Neutrophils % % Lymphocytes % % Monocytes % % Eosinophils % % Basophils % % Neutrophils # (1.3-7.7) k/uL Lymphocytes # (1.0-4.8) k/uL Monocytes # (0-1.0) k/uL Eosinophils # (0-0.7) k/uL Basophils # (0-0.2) k/uL PT (9.0-12.0) sec INR (<1.2) APTT (22.0-30.0) sec D-Dimer (<0.60) mg/L FEU Sodium (137-145) mmol/L Potassium (3.5-5.1) mmol/L Chloride (98-107) mmol/L Carbon Dioxide (22-30) mmol/L Anion Gap mmol/L BUN (7-17) mg/dL Creatinine (0.52-1.04) mg/dL Est GFR (CKD-EPI)AfAm (>60 ml/min/1.73 sqM) Est GFR (CKD-EPI)NonAf (>60 ml/min/1.73 sqM) Glucose (74-99) mg/dL Calcium (8.4-10.2) mg/dL Magnesium (1.6-2.3) mg/dL Total Bilirubin (0.2-1.3) mg/dL AST (14-36) U/L ALT (4-34) U/L Alkaline Phosphatase (38-126) U/L Troponin I <0.012 <0.012 (0.000-0.034) ng/mL Total Protein (6.3-8.2) g/dL Albumin (3.5-5.0) g/dL - EKG Data -: EKG Interpreted by Me EKG Comments: 12-lead Electrocardiogram Interpretation Note EKG was reviewed and interpreted by myself. 12-lead ECG performed at 1148 is interpreted by me as revealing normal sinus rhythm at a rate of 55 beats per minute. Ayden is normal. NH interval is 192 ms, QRS duration is 93 ms, QTc is 421 ms.. There were no ST or T wave abnormalities to suggest myocardial ischemia or injury. R wave progression across the precordium was satisfactory. By my interpretation this EKG is non-diagnostic for acute ischemia. Disposition Clinical Impression: Atypical chest pain Disposition: HOME SELF-CARE Condition: Good Instructions (If sedation given, give patient instructions): Chest Pain (ED) Is patient prescribed a controlled substance at d/c from ED?: No Referrals: Ana Mcallister, ANDREW [Primary Care Provider] - 1-2 days Time of Disposition: 15:00
[2021-09-05 15:19] VITALS: BP 168/72; PULSE 88; RESP 18; TEMP 98.3
== END 2021-09-05 15:19 | disposition home or self-care (01) ==
LOC: EC 11:05
DX: R07.89 Other chest pain (principal); F32.A Depression, unspecified; F12.90 Cannabis use, unspecified, uncomplicated; Z79.899 Other long term (current) drug therapy
CPT/HCPCS: 36415; 71046; 80053; 83735; 84484; 85025; 85379; 85610; 85730; 93005; 99285

== ENCOUNTER → 2021-11-26 | Outpatient (CLI) | payer MEDICARE ==
--- NOTE | 2021-11-26 10:23 | CA ---
Exercise Stress Test Report Name: [facility] Exam Date: 11/26/2021 08:58 Exam Location: [facility] Stress Ht (in): 62 Wt (lb): 160 BSA: 1.74 Ordering Phys: Noah Colón DO Referring Phys: Ana Mcallister PAC Technologist: Nikhil An Age: 71 Gender: F : 1950 Procedure CPT: Indications: R07.9 CHEST PAIN ICD-10 Codes: Patient History: Medications: CYMBALTA,,,,,, TRAZADONE,,,,,, MIRAPEX,,,,,, ZYRTEC,,,,,, ALEVE,,,,, Meds past 24 hrs: Pretest Chest Pain: STRESS TEST [facility] Protocol Exercise Duration (min:sec): 06:[address] Depressions (mm): Angina Score: Le Score: Resting HR (bpm): 64 Peak HR (bpm): 136 Resting BP (mmHg): 136 / 75 Peak BP (mmHg): 211 / 95 MPHR: 150 Target HR: 128 % MPHR: 91 METS: 8.3 Total Dose: Peak Dose: Atropine: Double Product: 34862 BP Response: Stress Termination: TARGET HR REACHED/MAX EXERTION Stress Symptoms: DIFFICULTY IN BREATHING Stress Summary: ECG ANALYSIS Resting ECG: Stress ECG: CONCLUSIONS This patient's Baseline EKG was unremarkable normal sinus rhythm was noted. She walked on a standard Milo protocol for 6 minutes 49 seconds and achieved a maximal heart rate of 135 bpm which is more than 85% of predicted maximal heart rate. There was no evidence of any angina, no arrhythmia on any ST segment changes to indicate ischemia. Patient overt fatigue and shortness of breath. By EKG criteria this is a negative stress test with fair exercise capacity. No evidence of ischemia was noted and no significant arrhythmia was noted Dr. Valentino Hutchinson MD (Electronically Signed) Final Date: 26 November 2021 10:22
== END | disposition home or self-care (01) ==
LOC: RADNMMAIN 08:21
PROVIDERS: ATTEND Family Medicine
DX: R07.9 Chest pain, unspecified (principal); R94.39 Abnormal result of other cardiovascular function study
CPT/HCPCS: 93017